=== PATIENT | female | born 1970 | race Two or more races ===

== ENCOUNTER 2016-11-07 16:24 | Inpatient (IN) | payer OTHER ==
[~2016-11-07] VITALS: Ht 160 cm; Wt 98.2 kg
[2016-11-07 18:26] LABS: BASOPHIL % 0.4 % (0-2); PLATELET COUNT 329 x10^3mcL (130-400); RED CELL DISTRIBUTION WIDTH 13.3 % (11.5-14.5)
[2016-11-07 18:40] LABS: ALBUMIN 3.6 g/dL (3.4-5.0); ALKALINE PHOSPHATASE 86 U/L (46-116); ALT/SGPT 23 U/L (14-59); AMYLASE 35 U/L (25-115); AST/SGOT 13 U/L (15-37); BILIRUBIN TOTAL 0.5 mg/dL (0.20-1.00); CALCIUM 8.8 mg/dL (8.5-10.1); CARBON DIOXIDE 25.3 mmol/L (21-32); CHLORIDE SERUM 103 mmol/L (98-107); CREATININE SERUM 0.9 mg/dL (0.6-1.0); GFR1 > 60 mL/min; GLUCOSE SERUM 106 mg/dL (74-106); LIPASE 165 IU/L (73-393); POTASSIUM SERUM 3.4 mmol/L (3.5-5.1); SODIUM SERUM 136 mmol/L (136-145); TOTAL PROTEIN, SERUM 7.9 g/dL (6.4-8.2)
[2016-11-07] MEDS ORDERED: ATENOLOL25 MG PO (21:50)
[2016-11-07 23:26] VITALS: BP 145/77
[2016-11-07 23:31] LABS: FREE T4 0.99 ng/dL (0.76-1.46); FREE THYROXINE INDEX 2.9 ug/dL (1.4-4.5); T4(THYROXINE) 9.2 ug/dL (4.7-13.3)
[2016-11-08 00:26] LABS: T3 TOTAL 1.27 ng/mL
[2016-11-08 02:10] LABS: microscopic required? YES; urine erythrocyte TRACE (NEGATIVE)
[2016-11-08 02:21] LABS: AMPHETAMINE QUAL UR NONE DETECTED (NEG <=1000)
[2016-11-08 06:16] VITALS: BP 138/76
[2016-11-08 09:30] VITALS: BP 141/82
[2016-11-08 12:57] VITALS: BP 138/78
[2016-11-08 17:02] VITALS: BP 132/65
[2016-11-08 21:52] VITALS: BP 140/72
[2016-11-09 06:05] VITALS: BP 124/76
[2016-11-09 07:04] LABS: BASOPHIL % 0.6 % (0-2); PLATELET COUNT 247 x10^3mcL (130-400); RED CELL DISTRIBUTION WIDTH 13.4 % (11.5-14.5)
[2016-11-09 07:20] LABS: CALCIUM 8.4 mg/dL (8.5-10.1); CARBON DIOXIDE 29.2 mmol/L (21-32); CREATININE SERUM 0.9 mg/dL (0.6-1.0); GFR1 > 60 mL/min; GLUCOSE SERUM 101 mg/dL (74-106); MAGNESIUM 2.1 mg/dL (1.8-2.4); PHOSPHOROUS 3.2 mg/dL (2.5-4.9)
[2016-11-09 08:10] LABS: CHLORIDE SERUM 106 mmol/L (98-107); POTASSIUM SERUM 3.8 mmol/L (3.5-5.1); SODIUM SERUM 142 mmol/L (136-145)
[2016-11-09 08:52] VITALS: BP 131/72
[2016-11-09] MEDS ORDERED: PRILOSEC OTC20 M1 PO (13:36)
[2016-11-09] MEDS ORDERED: CARAFATE1 GM PO (13:36)
[2016-11-09 13:55] VITALS: BP 131/72
[2016-11-09 15:43] LABS: HELICOBACTER PYLORI IGG QNT < 0.9 U/mL (0.0-0.8)
== END 2016-11-09 14:02 | disposition home or self-care (01) | DRG 392 ==
LOC: ED 16:24 → DU 21:43
PROVIDERS: Internal Medicine; Specialist; ADMIT Family Medicine
PROC: 0DB68ZZ Excision of Stomach, Via Natural or Artificial Opening Endoscopic (ICD-10-PCS; 2016-11-09)
PROC: 0DB38ZZ Excision of Lower Esophagus, Via Natural or Artificial Opening Endoscopic (ICD-10-PCS; principal; 2016-11-09 08:00)
DX: K29.70 Gastritis, unspecified, without bleeding (principal); N39.0 Urinary tract infection, site not specified; N13.30 Unspecified hydronephrosis; K22.70 Barrett's esophagus without dysplasia; E87.6 Hypokalemia; I10 Essential (primary) hypertension; R73.03 Prediabetes; E66.9 Obesity, unspecified; K29.80 Duodenitis without bleeding; E78.2 Mixed hyperlipidemia; N94.89 Other specified conditions associated with female genital organs and menstrual cycle; F41.9 Anxiety disorder, unspecified; D64.9 Anemia, unspecified; K20.9 Esophagitis, unspecified; Z68.38 Body mass index [BMI] 38.0-38.9, adult
CPT/HCPCS: 43239; 80307; 82962; 83880; 84439; C9113; J0696; J1200; J1610; J1885; J1956; J2250; J2310; J2405; J3010; J3490; J7030; Q0092